=== PATIENT | male | born 1965 | race Caucasian/White ===

== ENCOUNTER 2016-08-04 07:28 | Inpatient (IN) | payer MEDICARE, OTHER ==
--- NOTE | ~2016-08-04 | PN ---
Unit #: [id number] #: [id number] Patient: SAVITA WHITE JR [id number] [facility] [address] [place] [address] [id number] I MR#: [id number] NAME: SAVITA WHITE JR ROOM: P180 Age: 51 Sex: M Admission Date: 08/04/2016 : 1965 Attending Physician: Tulio Mascorro M.D. Admitting Physician: Tulio Mascorro M.D. Primary Care Physician: Generic Doctor Not In System [facility] PROGRESS NOTES DATE OF SERVICE: 08/14/2016 DISCUSSION Savita White is a 51-year-old male, seen on 08/14/2016. The patient interviewed, chart reviewed, and obtained information from nursing staff. The patient is withdrawn, isolative, flat affect, sad, dysphoric mood. The patient denied any suicidal ideation, but passive SI, guarded, withdrawn, isolative. REVIEW OF SYSTEMS Complete review of systems is unremarkable. MENTAL STATUS EXAMINATION General appearance, the patient dressed casually. Attention span and concentration, fair. Oriented in place and person. Mood and affect, sad, dysphoric, flat affect. Speech, monotone. Thought process, concrete. The patient denied any thoughts of harming self or others, but isolative, guarded, seclusive. Recent and remote memory, poor. Insight and judgment, poor. DIAGNOSIS Major depressive disorder, recurrent. ASSESSMENT AND PLAN Advised to continue with current medication and therapeutic protocol. If needed, consider further adjustment of medication. Dictated by... Severino Quan/mehreen TD: 08/16/2016 03:26 JOB #: [id number] Unit #: [id number] #: [id number] Patient: SAVITA WHITE JR [facility] PROGRESS NOTES Page 1 of 1 X Tulio Mascorro MD PROGRESS NOTE
--- NOTE | ~2016-08-04 | PN ---
Unit #: [id number] #: [id number] Patient: SAVITA WHITE JR [id number] [facility] [address] [place] [address] [id number] I MR#: [id number] NAME: SAVITA WHITE JR ROOM: P182 Age: 51 Sex: M Admission Date: 08/04/2016 : 1965 Attending Physician: Tulio Mascorro M.D. Admitting Physician: Severino Quan PROGRESS NOTES DATE OF SERVICE: 08/08/2016 DISCUSSION Savita White is a 51-year-old male, seen on 08/08/2016. The patient interviewed, chart reviewed, obtained information from nursing staff. The patient continues to be isolative, flat affect, sad, dysphoric, and anxious. The patient withdrawn, isolative, and passive SI. REVIEW OF SYSTEMS Complete review of systems unremarkable. MENTAL STATUS EXAMINATION General appearance, the patient dressed in hospital attire. Attention span and concentration, fair. Oriented in place and person. Mood and affect, sad and depressed. Speech, monotone. Thought process, concrete. The patient reported having passive SI. Denied any hallucination. Recent and remote memory, poor. Insight and judgment, poor. DIAGNOSIS Major depressive disorder, recurrent. ASSESSMENT AND PLAN Advised to continue with current medication and therapeutic protocol. If needed, consider further adjustment of medication. Dictated by... Severino Quan/mehreen TD: 08/08/2016 18:49 JOB #: [id number] Unit #: [id number] #: [id number] Patient: SAVITA WHITE JR NAT PROGRESS NOTES Page 1 of 1 X Tulio Mascorro MD PROGRESS NOTE
--- NOTE | ~2016-08-04 | PN ---
Unit #: [id number] #: [id number] Patient: SAVITA WHITE JR [id number] [facility] [address] [place] [address] [id number] I MR#: [id number] NAME: SAVITA WHITE JR ROOM: P182 Age: 51 Sex: M Admission Date: 08/04/2016 : 1965 Attending Physician: Tulio Mascorro M.D. Admitting Physician: Tulio Mascorro M.D. Primary Care Physician: Generic Doctor Not In System [facility] PROGRESS NOTES DATE OF SERVICE 08/05/2016 DISCUSSION Savita White is a 51-year-old male seen on 08/05/2016. The patient interviewed, chart reviewed. Obtained information from nursing staff. The patient was compliant, cooperative, but mood sad, dysphoric, flat affect, guarded, isolative. The patient tolerating medication fairly well, but still reported feeling sad, depressed, withdrawn, having suicidal ideation. Complete Review of Systems: Unremarkable. MENTAL STATUS EXAMINATION General Appearance: The patient dressed in hospital attire. Attention span, concentration: Poor. Oriented in place and person. Mood and affect: Sad, depressed. Speech: Monotone. Thought process: [place]. The patient reported having suicidal ideation, withdrawn, isolative, flat affect. Recent and remote memory: Poor. Insight and judgment: Poor. DIAGNOSES 1. Mood disorder not otherwise specified. 2. Amphetamine use disorder, moderate. 3. Cocaine use disorder, moderate. ASSESSMENT/PLAN Advised to continue with current medication and therapeutic protocol. If needed, consider further adjustment of medication. The patient was started on Celexa. If needed, consider further adjustment of medication. Dictated by... Severino Quan/franko TD: 08/06/2016 13:28 JOB #: [id number] Unit #: [id number] #: [id number] Patient: SAVITA WHITE JR PROGRESS NOTES Page 1 of 1 X Tulio Mascorro MD PROGRESS NOTE
--- NOTE | ~2016-08-04 | PN ---
Unit #: [id number] #: [id number] Patient: SAVITA WHITE JR [id number] [facility] [address] [place] [address] [id number] I MR#: [id number] NAME: SAVITA WHITE JR ROOM: P182 Age: 51 Sex: M Admission Date: 08/04/2016 : 1965 Attending Physician: Tulio Mascorro M.D. Admitting Physician: Tulio Mascorro M.D. Primary Care Physician: Generic Doctor Not In System [facility] PROGRESS NOTES DATE OF SERVICE: 08/12/2016 DISCUSSION Savita White is a 51-year-old male, seen on 08/12/2016. The patient interviewed, chart reviewed, and obtained information from nursing staff. The patient was isolative, guarded, flat affect, sad and dysphoric. Reports able to sleep good, started on Remeron yesterday to help with depression and sleep. The patient denied any suicidal ideation, but reported still feeling sad, depressed, withdrawn, blunted affect. Complete review of systems unremarkable. MENTAL STATUS EXAMINATION General appearance, the patient dressed casually in hospital attire, withdrawn, isolative. Attention span and concentration, fair. Oriented in place and person. Mood and affect, sad and depressed. Speech, monotone. Thought process, concrete. The patient denied any thoughts of harming self or others, but having passive SI, withdrawn, isolative. Recent and remote memory, poor. Insight and judgment, poor. DIAGNOSES Major depressive disorder, recurrent. ASSESSMENT AND PLAN Advised to continue with current medication and therapeutic protocol. If needed, consider further adjustment of medication. Dictated by... Severino Quan/mehreen TD: 08/12/2016 19:10 JOB #: [id number] Unit #: [id number] #: [id number] Patient: SAVITA WHITE JR [facility] PROGRESS NOTES Page 1 of 1 X Tulio Mascorro MD PROGRESS NOTE
--- NOTE | ~2016-08-04 | PN ---
Unit #: [id number] #: [id number] Patient: SAVITA WHITE JR [id number] [facility] [address] [place] [address] [id number] I MR#: [id number] NAME: SAVITA WHITE JR ROOM: 82 Age: 51 Sex: M Admission Date: 08/04/2016 : 1965 Attending Physician: Tulio Mascorro M.D. Admitting Physician: Tulio Mascorro M.D. Primary Care Physician: Generic Doctor Not In System [facility] PROGRESS NOTES DATE OF SERVICE 08/10/2016 DISCUSSION Savita White is a 51-year-old male seen on 08/10/2016. The patient interviewed, chart reviewed. Obtained information from nursing staff. The patient was compliant, cooperative. Mood sad, dysphoric, flat affect, withdrawn, isolative. The patient reported still having suicidal ideation, trouble sleeping. Complete Review of Systems: Unremarkable. MENTAL STATUS EXAMINATION General Appearance: The patient dressed casually. Attention span, concentration: Fair. Oriented in place and person. Mood and affect: Sad, depressed. Speech: Monotone. Thought process: [place]. The patient reported having suicidal ideation, withdrawn, isolative, guarded. Recent and remote memory: Poor. Judgment: Poor. DIAGNOSIS Major depressive disorder, recurrent. ASSESSMENT/PLAN Advised to discontinue trazodone and start the patient on Doxepin 100 mg at bedtime. Continue with the other medications same. If needed, consider further adjustment of medication. Dictated by... Severino Quan/franko TD: 08/11/2016 10:35 JOB #: [id number] Unit #: [id number] #: [id number] Patient: SAVITA WHITE JR [facility] PROGRESS NOTES Page 1 of 1 X Tulio Mascorro MD PROGRESS NOTE
--- NOTE | ~2016-08-04 | HP ---
Unit #: [id number] #: [id number] Patient: SAVITA PRIEST JR [id number] [place] [address] [id number] I MR#: [id number] NAME: SAVITA PRIEST JR ROOM: P182 Age: 51 Sex: M Admission Date: 08/04/2016 : 1965 Attending Physician: Tulio Mascorro M.D. Admitting Physician: Tulio Mascorro M.D. Primary Care Physician: Generic Doctor Not In System HISTORY AND PHYSICAL HISTORY OF PRESENT ILLNESS Savita is a 51 year old admitted to [facility] because of his polysubstance abuse which includes crack cocaine, methamphetamine, Dilaudid. PAST MEDICAL HISTORY 1. Long history of illicit substance abuse. 2. High blood pressure. 3. COPD. 4. Diabetes mellitus. PAST SURGICAL HISTORY Nothing reported. ALLERGIES No known drug allergies. SOCIAL HISTORY Smokes 1 pack per day. Drinks alcohol on occasion. Admits to a long history of illicit substance abuse to include crack cocaine, Dilaudid, IV methamphetamine. FAMILY HISTORY Medically noncontributory. REVIEW OF SYSTEMS CONSTITUTIONAL: No fever or chills. HEENT: Denies any sore throat, ear pain or runny nose. CARDIOVASCULAR: Denies chest pain, irregular heart rhythm or palpitations. CHEST: Denies shortness of breath or cough. No hemoptysis. GASTROINTESTINAL: Denies nausea, vomiting, diarrhea or chronic constipation. ENDOCRINE: Denies history of increased thirst or urination. No recent significant weight loss or gain. GENITOURINARY: Denies dysuria, frequency, or hematuria. SKIN: Denies any rashes. HEMATOLOGIC: Denies history of increased bleeding or bruising. MUSCULOSKELETAL: Denies any hot, swollen joints. No generalized muscle pain. NEUROLOGIC: Denies problems with vision or speech. No frequent, severe headaches. No numbness, tingling or weakness in any extremities. Denies loss of bladder or bowel control. CURRENT MEDICATIONS Unit #: [id number] #: [id number] Patient: SAVITA PRIEST JR 1. Detox protocol. 2. Celexa 20 mg q.h.s. PHYSICAL EXAMINATION GENERAL: Alert, well-nourished, in no apparent distress. VITAL SIGNS: Blood pressure 112/62, heart rate 76, respirations 16, temperature 98.6. WEIGHT: 170. HEIGHT: 5 feet 5 inches. SKIN: Warm and dry without rash or lesion. HEENT: Normocephalic. TMs not viewed. Oral and nasal passages clear. Conjunctivae clear. PERRLA. EOMs intact. NECK: Supple without lymphadenopathy or thyromegaly. HEART: Regular rate and rhythm without murmur. LUNGS: Clear. ABDOMEN: Soft, nontender. : Not done. EXTREMITIES: No evidence of cyanosis, clubbing or edema. Moves all without focal deficit. NEUROLOGICAL: Grossly within normal limits. Cranial Nerves: II: Visual fournier are intact. III, IV AND : Extraocular movements are intact. Pupils are equal, round and reactive to light. V: Facial sensation is grossly normal. VII: Facial movements and expression are normal. VIII: Auditory acuity grossly intact. IX, X: Uvula is midline. Phonation is normal. XI: Patient shrugs shoulders and turns head normally. XII: Tongue protrudes in the midline. Sensory and Motor Function: Sensory and motor sensation is grossly normal. Motor: moves all extremities well. Coordination: Gait is normal. Deep Tendon Reflexes: Intact. IMPRESSION Psychiatric admission. RECOMMENDATIONS PSYCHIATRIC: Per psychiatrist. MEDICAL: See no contraindications to participate in facility's activities. MEDICAL PROGNOSIS Good. MEDICAL CONDITION Stable. Dictated by... Lianna Beasley PTobyAToby-Bridger. for Severino Prasad/yahaira TD: 08/04/2016 20:30 JOB #: [id number] Unit #: [id number] #: [id number] Patient: SAVITA PRIEST HISTORY AND PHYSICAL Page 1 of 1 X Lianna Beasley HISTORY AND PHYSICAL
--- NOTE | ~2016-08-04 | PN ---
Unit #: [id number] #: [id number] Patient: SAVITA WHITE JR [id number] [facility] [address] [place] [address] [id number] I MR#: [id number] NAME: SAVITA WHITE JR ROOM: 80 Age: 51 Sex: M Admission Date: 08/04/2016 : 1965 Attending Physician: Tulio Mascorro M.D. Admitting Physician: Tulio Mascorro M.D. Primary Care Physician: Generic Doctor Not In System [facility] PROGRESS NOTES DATE OF SERVICE: 08/15/2016 DISCUSSION Mr. Savita White is a 51-year-old male, seen on 08/15/2016. The patient interviewed, chart reviewed, and obtained information from our nursing staff. The patient reported feeling sad, depressed, anxious. Vital signs stable. The patient is isolative, guarded, flat affect, and compliant with medication. The patient denied any side effects from medication. REVIEW OF SYSTEMS Complete review of systems is unremarkable. MENTAL STATUS EXAMINATION General appearance, the patient dressed casually. Attention span and concentration, poor. Oriented in time, place, and person. Mood and affect, sad and depressed. Speech, monotone. Thought process, concrete. Association, the patient reported having passive SI, denied any plan, denied any homicidal ideation or psychotic symptom. Cognition, intact. Insight and judgment, fair to poor. DIAGNOSIS Major depressive disorder, recurrent, severe. ASSESSMENT AND PLAN Advised to continue with current combination of Remeron, doxepin, Vistaril, Neurontin, and Celexa. The patient was ordered lorazepam 1 mg p.r.n. yesterday for severe anxiety and agitation. We will continue to follow. If needed, consider further adjustment of medication. Dictated by... Severino Quan/mehreen TD: 08/16/2016 03:30 JOB #: [id number] Unit #: [id number] #: [id number] Patient: SAVITA WHITE JR [facility] NOTES Page 1 of 1 X Tulio Mascorro MD X PROGRESS NOTE
--- NOTE | ~2016-08-04 | PN ---
Unit #: [id number] #: [id number] Patient: SAVITA WHITE JR [id number] [facility] [address] [place] [address] [id number] I MR#: [id number] NAME: SAVITA WHITE JR ROOM: 80 Age: 51 Sex: M Admission Date: 08/04/2016 : 1965 Attending Physician: Tulio Mascorro M.D. Admitting Physician: Tulio Mascorro M.D. Primary Care Physician: Generic Doctor Not In System [facility] PROGRESS NOTES DATE OF SERVICE: 08/16/2016 DISCUSSION Savita White is a 51-year-old male, seen on 08/16/2016. The patient interviewed, chart reviewed, and obtained information from nursing staff. The patient was withdrawn, isolative, flat affect, sad and dysphoric mood, but denied any suicidal ideation. The patient's vital signs stable; temperature 98.4, heart rate 69, respiratory rate 16, and blood pressure 92/53. The patient compliant with medication. Reports mood is getting better, but still having periods of mood lability, sad, depressed, and isolative. Received Ativan 1 mg p.o. yesterday for agitation. REVIEW OF SYSTEMS Complete review of systems unremarkable. MENTAL STATUS EXAMINATION General appearance, the patient dressed casually. Attention span and concentration, fair. Oriented in time, place, and person. Mood and affect, sad, dysphoric, and flat. Speech, monotone. Thought process, concrete. The patient reported problem with feeling sad, anger, and agitation, but denied any suicidal ideation, withdrawn, isolative, and flat affect. Recent and remote memory, poor. Insight and judgment, poor. DIAGNOSIS Major depressive disorder, recurrent. ASSESSMENT AND PLAN Advised to continue with current medication and therapeutic protocol. If needed, consider further adjustment of medication. Dictated by... Severino Quan/mehreen TD: 08/16/2016 14:40 JOB #: [id number] Unit #: [id number] #: [id number] Patient: SAVITA WHITE JR [facility] PROGRESS NOTES Page 1 of 1 X Tulio Mascorro MD PROGRESS NOTE
--- NOTE | ~2016-08-04 | PN ---
Unit #: [id number] #: [id number] Patient: SAVITA WHITE JR [id number] [facility] [address] [place] [address] [id number] I MR#: [id number] NAME: SAVITA WHITE JR ROOM: P182 Age: 51 Sex: M Admission Date: 08/04/2016 : 1965 Attending Physician: Tulio Mascorro M.D. Admitting Physician: Tulio Mascorro M.D. Primary Care Physician: Generic Doctor Not In System [facility] PROGRESS NOTES DATE OF SERVICE: 08/09/2016 DISCUSSION Savita White is a 51-year-old male, seen on 08/09/2016. The patient interviewed, chart reviewed, and obtained information from nursing staff. The patient was compliant and cooperative. Mood is sad, dysphoric, flat affect, guarded. The patient still having passive SI. Vital signs were stable temperature 98.4, pulse 64, blood pressure 103/72. Complete review of system unremarkable. MENTAL STATUS EXAMINATION General appearance, the patient dressed casually. Hygiene and grooming, poor. Isolative, guarded. Attention span and concentration, fair. Oriented in place and person. Mood and affect, sad and dysphoric. Speech, monotone. Thought process, concrete. The patient denied any thoughts of harming self or others, but guarded. Recent and remote memory, poor. Isolative, flat, sad, dysphoric, passive SI. Insight and judgment, fair to poor. DIAGNOSIS Major depressive disorder, recurrent. ASSESSMENT AND PLAN Advised to continue with current medication and therapeutic protocol. If needed, consider further adjustment of medication. Dictated by... Severino Quan/mehreen TD: 08/10/2016 00:08 JOB #: [id number] Unit #: [id number] #: [id number] Patient: SAVITA WHITE JR [facility] PROGRESS NOTES Page 1 of 1 X Tulio Mascorro MD PROGRESS NOTE
--- NOTE | ~2016-08-04 | PN ---
Unit #: [id number] #: [id number] Patient: SAVITA WHITE JR [id number] [facility] [address] [place] [address] [id number] I MR#: [id number] NAME: SAVITA WHITE JR ROOM: P182 Age: 51 Sex: M Admission Date: 08/04/2016 : 1965 Attending Physician: Tulio Mascorro M.D. Admitting Physician: Tulio Mascorro M.D. Primary Care Physician: Generic Doctor Not In System [facility] PROGRESS NOTES DATE 08/06/2016 DISCUSSION Mr. Beto White is a 51-year-old male, seen on 08/06/2016. The patient interviewed, chart reviewed, and obtained information from the nursing staff. The patient continues to be confused, guarded, paranoid, seems to be attending to internal stimuli. Compliant with medication. Vital signs, 98.4, 73, 90/57. The patient slept good, compliant with medication. REVIEW OF SYSTEMS Complete review of systems unremarkable. MENTAL STATUS EXAMINATION General appearance: Patient dressed casually. Attention span and concentration, fair. Oriented to place and person. Mood and affect, sad and dysphoric, flat affect, guarded, anxious, nervous. Speech, monotone. Thought process, concrete. The patient denied any suicidal ideation but still sad and depressed, guarded. Recent and remote memory, poor. Insight and judgment, poor. DIAGNOSIS Mood disorder, NOS. ASSESSMENT/PLAN Advised to continue with the current medication and therapeutic protocol and if needed consider further adjustment of medication. Dictated by... Severino Quan/shaun TD: 08/07/2016 14:35 JOB #: [id number] Unit #: [id number] #: [id number] Patient: SAVITA WHITE JR [facility] PROGRESS NOTES Page 1 of 1 X Tulio Mascorro MD X PROGRESS NOTE
--- NOTE | ~2016-08-04 | DS ---
Unit #: [id number] #: [id number] Patient: SAVITA PRIEST JR [id number] [facility] [address] [place] [address] [id number] I MR#: [id number] NAME: SAVITA PRIEST JR ROOM: 80 Age: 51 Sex: M Admission Date: 08/04/2016 : 1965 Discharge Date: 08/18/2016 Attending Physician: Tulio Mascorro M.D. Primary Care Physician: Generic Doctor Not In System DISCHARGE SUMMARY REASON FOR ADMISSION Depression, methamphetamine abuse, cocaine abuse. DIAGNOSTIC STUDIES LABORATORY RESULTS: Unremarkable. HOSPITAL COURSE The patient was admitted to inpatient unit on 08/04/2016 and discharged on 08/18/2016. The patient was treated on the inpatient unit with group therapy, individual therapy, medication management. The patient responded well, received maximum benefits, able to contract for safety. Subsequently, the patient was discharged with a plan to follow up in outpatient program. DISCHARGE MEDICATIONS Neurontin 800 mg q.i.d. for pain and neuropathy, Celexa 20 mg daily for depression, Vistaril 50 mg at bedtime for anxiety, Seroquel 100 mg at bedtime for sleep, Remeron 30 mg at bedtime for depression. DISCHARGE DIAGNOSES Psychiatric: Major depressive disorder, recurrent, F33.2; amphetamine use disorder, moderate, F15.20; cocaine use disorder, moderate, F14.20. Secondary diagnosis: Deferred. Medical diagnosis: Chronic neck pain. Stressors: Psychosocial stressors. DISCHARGE INSTRUCTIONS The patient to follow up in outpatient clinic as per social service assistant. CONDITION ON DISCHARGE The patient was pleasant and cooperative. Denied any psychotic symptom or any suicidal ideation. PROGNOSIS Guarded. DIET AND ACTIVITY As tolerated. Unit #: [id number] #: [id number] Patient: SAVITA RPIEST JR Dictated by... Tulio Mascorro M.D. SZC/angelal TD: 08/18/2016 17:09 JOB #: [id number] DISCHARGE SUMMARY Page 1 of 1 X Tulio Mascorro MD DISCHARGE SUMMARY
--- NOTE | ~2016-08-04 | PN ---
Unit #: [id number] #: [id number] Patient: SAVITA WHITE JR [id number] [facility] [address] [place] [address] [id number] I MR#: [id number] NAME: SAVITA WHITE JR ROOM: [facility] Age: 51 Sex: M Admission Date: 08/04/2016 : 1965 Attending Physician: Tulio Mascorro M.D. Admitting Physician: Tulio Mascorro M.D. Primary Care Physician: Generic Doctor Not In System [facility] PROGRESS NOTES DATE 08/17/2016 DISCUSSION Savita White is a 41-year-old male seen on 08/17/2016. The patient interviewed, chart reviewed. Obtained information from nursing staff. The patient reported still having trouble sleeping. Mood sad, dysphoric, flat affect, guarded but denied any suicidal ideation. The patient reported feeling still frustrated, mad, upset as he was rejected from two placement. The patient isolative, guarded, flat affect. Compliant with medication. Complete review of systems unremarkable. MENTAL STATUS EXAMINATION General appearance, the patient dressed casually, moderately obese. Attention span and concentration fair. Oriented to time, place and person. Mood and affect labile. Speech regular rate. Thought process goal directed. The patient denied any thoughts of harming self or others but still feeling hopeless, worthless, sad, depressed, frustrated, mad, angry, isolative, seclusive. Recent and remote memory poor. Insight and judgement poor. DIAGNOSES Major depressive disorder recurrent severe ASSESSMENT/PLAN Advise to continue with current medication and therapeutic protocol. If needed consider further adjustment of medication. Dictated by... Severino Quan/alma TD: 08/18/2016 02:20 JOB #: [id number] Unit #: [id number] #: [id number] Patient: SAVITA WHITE JR [facility] PROGRESS NOTES Page 1 of 1 X Tulio Mascorro MD PROGRESS NOTE
--- NOTE | ~2016-08-04 | PN ---
Unit #: [id number] #: [id number] Patient: SAVITA WHITE JR [id number] [facility] [address] [place] [address] [id number] MR#: [id number] NAME: SAVITA WIHTE JR ROOM: [facility] Age: 51 Sex: M Admission Date: 08/04/2016 : 1965 Attending Physician: Tulio Mascorro M.D. Admitting Physician: Tulio Mascorro M.D. Primary Care Physician: Generic Doctor Not In System [facility] PROGRESS NOTES DATE OF SERVICE 08/13/2016 DISCUSSION Savita White is a 51-year-old male seen on 08/13/2016. The patient interviewed, chart reviewed. Obtained information from nursing staff. The patient was compliant, cooperative. Mood sad, dysphoric, flat affect. The patient withdrawn, sad, but reported he was able to sleep good. Tolerating medication fairly well, but still somewhat isolative. Able to contract for safety. Complete Review of Systems: Unremarkable. MENTAL STATUS EXAMINATION General Appearance: The patient dressed casually. Attention span, concentration: Fair. Oriented in time, place, and person. Mood and affect: Sad, depressed. Speech: Monotone. Thought process: Carney. The patient still isolative, guarded, flat affect. Passive SI, but able to contract for safety on the unit. Denied any psychotic symptom. Recent and remote memory: Poor. Insight and judgment: Poor. DIAGNOSIS Major depressive disorder, recurrent. ASSESSMENT/PLAN Advised to continue with current medication and therapeutic protocol. If needed, consider further adjustment of medication. The patient is reporting mood is getting better, but still isolative, guarded. We will make further adjustment of medication if needed. Dictated by... Severino Quan/franko TD: 08/14/2016 07:02 JOB #: [id number] Unit #: [id number] #: [id number] Patient: SAVITA WHITE JR CE PROGRESS NOTES Page 1 of 1 X Tulio Mascorro MD PROGRESS NOTE
--- NOTE | ~2016-08-04 | PA ---
Unit #: [id number] #: [id number] Patient: SAVITA WHITE JR [id number] [facility] [address] [place] [address] [id number] I MR#: [id number] NAME: SAVITA WHITE JR ROOM: P182 Age: 51 Sex: M Admission Date: 08/04/2016 : 1965 Date of Assessment: 08/04/2016 Attending Physician: Tulio Mascorro M.D. Admitting Physician: Tulio Mascorro M.D. Primary Care Physician: Generic Doctor Not In System PSYCHIATRIC ASSESSMENT INFORMANT The patient's reliability, fair; chart reliability, good. CHIEF COMPLAINT Suicidal ideation. HISTORY OF PRESENT ILLNESS Mr. Savita White is a 51-year-old male presented with the above-mentioned complaint. The patient presented to the emergency room trying to kill himself by overdosing on methamphetamine, cocaine and pain pills. The patient reported tox screen was only present for amphetamine. The patient reported having suicidal ideation with a plan to overdose on illicit substances. The patient reported multiple stressors at home. The patient reported no point living, feeling of hopelessness, worthlessness, suicidal ideation. No psychotic symptom or any homicidal ideation. Needing inpatient admission at this time for psychiatric stabilization. The patient reported tobacco use, age of onset 13; alcohol, age of onset 9; crack cocaine, age of onset 10; opioid use, age of onset 24; amphetamine, age of onset 51. The patient reported history of blackout, history of IV drug use. PAST PSYCHIATRIC HISTORY Remarkable for history of previous treatment, details unknown at this time. FAMILY HISTORY AND SOCIAL HISTORY Poor support system. No history of any abuse. MEDICAL HISTORY Remarkable for history of neck pain. ALLERGIES No known drug allergies. MEDICATION HISTORY None. SUBSTANCE ABUSE HISTORY Please see above. REVIEW OF SYSTEMS HEENT: Eyes, clear. Ears, nose, mouth, and throat; clear. CARDIOVASCULAR: Unremarkable. RESPIRATORY: Unremarkable. Unit #: [id number] #: [id number] Patient: SAVITA WHITE JR GI: Unremarkable. : Unremarkable. SKIN: Unremarkable. LYMPH NODE: Unremarkable. NEUROLOGIC: Unremarkable. ENDOCRINE: Unremarkable. HEMATOLOGIC: Unremarkable. ALLERGIC/IMMUNOLOGIC: Unremarkable. MUSCULOSKELETAL: Muscle strength and tone, no atrophy or abnormal movement. Gait normal. MENTAL STATUS EXAMINATION CONSTITUTIONAL: Measurement of vital signs; temperature is 98.3, pulse 76, respirations 18, oxygen saturation 100%, blood pressure 112/63, height 5 feet 5 inches, weight 170 pounds. GENERAL APPEARANCE: The patient is dressed casually. The patient did not show any facial deformity. MUSCULOSKELETAL: Please see above. PSYCHIATRIC EXAMINATION Description of speech; regular rate, normal volume, normal articulation, coherent, and spontaneous. Description of thought process, goal directed. Description of association, intact. Description of abnormal psychotic thinking; the patient was guarded, paranoid, suicidal ideation, depression, substance abuse. Denied any homicidal ideation. Description of the patient's judgment, concerning. Everyday activity, poor. Social situation, poor and concerning. Psychiatric condition, poor. Complete mental status examination; oriented in time, place, and person. Recent and remote memory fair. Attention span and concentration, fair. Language, able to name object and repeat phrases. Fund of knowledge, aware of current event and passive vocabulary intact. Mood and affect, sad and dysphoric. Insight and judgment, fair to poor. ASSETS AND LIABILITIES Assets; the patient is articulate and able to take care of his ADL. Liability; history of depression and substance abuse. ADMITTING DIAGNOSES Psychiatric: 1. Mood disorder, not otherwise specified, F32.9. 2. Rule out major depressive disorder, F33.2. 3. Amphetamine use disorder, moderate, F15.20. 4. Cocaine use disorder, moderate, F14.20. Secondary diagnosis: Deferred. Medical diagnosis: Neck pain. Stressors: Psychosocial stressors. PSYCHIATRIC PLAN AND TREATMENT GOAL AND DISCHARGE PLAN 1. Advised to admit the patient on the inpatient unit. Provide safe, supportive, and structured environment. 2. Ordered labs; CBC, CMP, UA, and UDS. Advised to resume home medication and add Celexa for depression and Desyrel for sleep. The patient to attend all the programing, group therapy, individual therapy, medication management. 3. Treatment goal is to attain euthymic mood, gain insight into his Unit #: [id number] #: [id number] Patient: SAVITA WHITE problem, and learn coping skills. 4. Discharge plan; to stabilize the patient and consider followup in outpatient program. ESTIMATED LENGTH OF STAY 5 days. Dictated by... Tulio Mascorro M.D. ANALISA/mehreen MONROY: 08/04/2016 14:06 TD: 08/05/2016 04:44 JOB #: [id number] PSYCHIATRIC ASSESSMENT Page 1 of 1 X Tulio Mascorro MD PSYCHIATRIC ASSESSMENT
--- NOTE | ~2016-08-04 | PN ---
Unit #: [id number] #: [id number] Patient: SAVITA WHITE JR [id number] [facility] [address] [place] [address] [id number] I MR#: [id number] NAME: SAVITA WHITE JR ROOM: P182 Age: 51 Sex: M Admission Date: 08/04/2016 : 1965 Attending Physician: Tulio Mascorro M.D. Admitting Physician: Tulio Mascorro M.D. Primary Care Physician: Generic Doctor Not In System [facility] PROGRESS NOTES DATE 08/07/2016 DISCUSSION Savita White is a 51-year-old male seen on 08/07/2016. Patient interviewed, chart reviewed, obtained information from the nursing staff. The patient was compliant and cooperative. Mood sad and dysphoric, anxious. Patient denied any thoughts of harming self or others. Still withdrawn, isolative. Flat affect. Sad, dysphoric mood. Complete review of systems unremarkable. MENTAL STATUS EXAMINATION General appearance: Patient is dressed casually. Attention span and concentration fair. Oriented in time, place and person. Mood and affect sad and dysphoric. Speech monotone. Thought process concrete. Patient denied any thoughts of harming self or others. Recent and remote memory poor. Insight and judgement poor. DIAGNOSIS Major depressive disorder, recurrent. ASSESSMENT AND PLAN Advise to continue with current combination of Desyrel, Celexa and Neurontin. If needed, consider further adjustment of medication. Dictated by... Severino Quan/tori TD: 08/08/2016 09:58 JOB #: [id number] Unit #: [id number] #: [id number] Patient: SAVITA WHITE JR [facility] PROGRESS NOTES Page 1 of 1 X Tulio Mascorro MD X PROGRESS NOTE
--- NOTE | ~2016-08-04 | PN ---
Unit #: [id number] #: [id number] Patient: TREVON WHITE JR [id number] [facility] [address] [place] [address] [id number] I MR#: [id number] NAME: TREVON WHITE JR ROOM: P182 Age: 51 Sex: M Admission Date: 08/04/2016 : 1965 Attending Physician: Tulio Mascorro M.D. Admitting Physician: Tulio Mascorro M.D. Primary Care Physician: Generic Doctor Not In System [facility] PROGRESS NOTES DATE 08/11/2016 DISCUSSION Mr. Trevon White is a 51-year-old male seen on 08/11/2016. Patient continues to report feeling sad and depressed, having suicidal ideation, reported still not able to sleep. Yesterday started o Doxepin. Patient reported did fairly well . Patient is still endorsing symptoms of depression, suicidal ideation and trouble sleeping. Patient seclusive and isolative. Vital signs 98.4, 62, 16, 112/68. Complete review of systems unremarkable. MENTAL STATUS EXAMINATION General appearance: Patient is dressed in hospital attire. Attention span and concentration fair. Oriented in place and person. Mood and affect sad and depressed. Speech monotone. Thought process concrete. Patient reported having suicidal ideation, trouble sleeping, unable to contract for safety. Denied any homicidal ideation. Recent and remote memory fair. Insight and judgement fair to poor. DIAGNOSIS Major depressive disorder, recurrent. ASSESSMENT AND PLAN Advise to continue with current medication and with plan to add Remeron 15 mg at bedtime to help with sleep as well as with depression. Continue with inpatient programming. If needed, consider further adjustment of medication. Dictated by... Severino Quan TD: 08/12/2016 08:44 JOB #: [id number] Unit #: [id number] #: [id number] Patient: TREVON WHITE JR [facility] PROGRESS NOTES Page 1 of 1 X Tulio Mascorro MD X PROGRESS NOTE
[~2016-08-04 07:28] MED LIST: BACTRIM DS TABL1 TA1 PO; DILANTIN PO; FLEXERIL PO; KEFLEX500 MG PO; KETOPROFEN PO; MOTRIN400 MG PO; VICODIN 5/500 T1 TAB PO
== END 2016-08-18 09:50 | disposition home or self-care (01) | DRG 885 ==
LOC: P1E 07:28
PROC: HZ2ZZZZ Detoxification Services for Substance Abuse Treatment (ICD-10-PCS; principal; 2016-08-04)
DX: F39 Unspecified mood [affective] disorder (principal); F33.2 Major depressive disorder, recurrent severe without psychotic features; F15.20 Other stimulant dependence, uncomplicated; F14.20 Cocaine dependence, uncomplicated; R45.851 Suicidal ideations; M54.2 Cervicalgia; F17.210 Nicotine dependence, cigarettes, uncomplicated
CPT/HCPCS: 82947